=== PATIENT | female | born 1990 | race Caucasian/White ===

== ENCOUNTER 2018-10-12 12:37 | Emergency (ER) | payer MEDICAID ==
[2018-10-12] MEDS ORDERED: methylPREDNISolone SOD SUCC 125 MG/2 ML VIAL IVP ONE (13:44)
[2018-10-12] MEDS ORDERED: EPINEPHrine 1 MG/ML INJ IM ONE (13:44)
[2018-10-12] MEDS ORDERED: RANITIDINE 50 MG/2 ML VIAL IVP ONE (13:44)
--- NOTE | 2018-10-12 14:50 | EDPHY ---
General Time Seen by Provider: 10/12/18 13:42 Narrative: CHIEF COMPLAINT: Allergic reaction HISTORY OF PRESENT ILLNESS: Patient presents by EMS with reports of allergic reaction to a rabbit. She states that she was petting a rabbit, and 10 min later she began to feel her face swell, her throat itch, and her skin age. Symptoms happened abruptly and very severe. She was given IV Benadryl EN route with minimal improvement. She reports still having some difficulty swallowing. She has no chest pain or shortness of breath. She has itching throughout her body. She has no modifying factors. No previous incidence of this. No known allergies. No other associated complaints or modifying factors. REVIEW OF SYSTEMS: 10 systems were reviewed and negative with the exception of the elements mentioned in the history of present illness. PCP: [facility] [place] SPECIALISTS: None currently PAST MEDICAL HISTORY: Denies PAST SURGICAL HISTORY: Denies SOCIAL HISTORY: Lives independently with a significant other. 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 FAMILY HISTORY: Noncontributory EXAMINATION: Vitals: Triage VS reviewed General Appearance: Alert, no distress. Speaking in full sentences. Head: normocephalic, atraumatic Eyes: Pupils equal and round, no conjunctival pallor. There is periorbital edema. Eyes are well visualized without difficulty. ENT, Mouth: Mucous membranes moist. Airway is widely patent. There is no trismus. No edema of the lips or tongue. Uvula is midline. Neck: Normal inspection, supple, non-tender Respiratory: Lungs are clear to auscultation Cardiovascular: Regular rate and rhythm. No murmur Neurological: Cranial nerves 2-12 grossly intact. A&O, nonfocal, normal gait Skin: Warm and dry. Multiple tattoos and piercings. Mild urticaria to the arms. Extremities: Nontender, no pedal edema Psychiatric: Mood and affect normal DIFFERENTIAL DIAGNOSES: Including but not limited to anaphylaxis, allergic reaction MDM: 1:45 p.m. Acute allergic reaction with facial swelling but no compromise of the airway. She received IV Benadryl EN route, and I have added epinephrine, Solu-Medrol and H2 olga. We will re-evaluate shortly. She is in no acute distress. Awake and alert. 2:15 p.m. Patient re-evaluated. She is starting to improve. Airway remains patent. She is conversing in full sentences. No drooling. No trismus. No swelling of the lips or tongue. 3:00 p.m. Patient re-evaluated. She has continued to improve. Continue to monitor. 3:30 p.m. Patient re-evaluated. She is feeling significantly better. She is tolerating liquids by mouth. Her eyes are significantly improved. There is no swelling of the lips or tongue. No drooling. We discussed discharge home with short course of Benadryl, Pepcid and steroid burst. We discussed strict ED precautions for return of swelling, swelling lips or tongue, rash or difficulty breathing or swallowing. She is comfortable this plan. She is ambulatory. Discharged home stable condition. SUPERVISION: This patient was independently evaluated without direct involvement of or examination by the attending physician. CONSULTATION: None - History Smoking Status: Current every day smoker - Objective Vital Signs: Initial Vital Signs Temperature (C) 98.4 F 10/12/18 12:43 Heart Rate 78 10/12/18 12:43 Respiratory Rate 16 10/12/18 12:43 Blood Pressure 115/72 10/12/18 12:43 O2 Sat (%) 96 10/12/18 12:43 O2 Delivery Mode Room Air Allergies/Adverse Reactions: Penicillins Allergy (Verified 10/12/18 12:41) strawberry Allergy (Verified 10/12/18 12:42) Home Medications: Medication Instructions Recorded Dexamethasone [Decadron 4 MG (*)] 8 mg PO DAILY #4 tab 10/12/18 Medications Given: Discontinued Medications Epinephrine HCl (Epinephrine) 0.3 mg IM EDNOW ONE Stop: 10/12/18 13:45 Last Admin: 10/12/18 13:57 Dose: 0.3 mg Methylprednisolone Sodium Succinate (Solu-Medrol) 125 mg IVP EDNOW ONE Stop: 10/12/18 13:45 Last Admin: 10/12/18 14:00 Dose: 125 mg Ranitidine HCl (Zantac) 50 mg IVP EDNOW ONE Stop: 10/12/18 13:45 Last Admin: 10/12/18 13:54 Dose: 50 mg Departure - Departure Disposition: Home, Routine, Self-Care Clinical Impression: Acute anaphylaxis Qualifiers: Encounter type: initial encounter Qualified Code(s): T78.2XXA - Anaphylactic shock, unspecified, initial encounter Allergic reaction Qualifiers: Encounter type: initial encounter Qualified Code(s): T78.40XA - Allergy, unspecified, initial encounter Condition: Good Instructions: Anaphylaxis (ED), General Allergic Reaction (ED) Additional Instructions: 1. Decadron steroid by mouth tonight and 1 additional dose tomorrow morning. 2. Benadryl 25-50 mg every 6 hr as needed for the next 24 hr 3. Pepcid 20 mg every 12 hr for the next 24 hr as needed 4. Strict ED precautions for return of any facial swelling, swelling of the lips or tongue, difficulty breathing Referrals: Lindsay Hayes MD [[facility] Primary Care Provider] - As per Instructions Prescriptions: Dexamethasone [Decadron 4 MG (*)] 8 mg PO DAILY #4 tab
[2018-10-12 15:29] VITALS: BP 107/60
== END 2018-10-12 15:51 | disposition home or self-care (01) ==
DX: L23.81 Allergic contact dermatitis due to animal (cat) (dog) dander (principal); F17.200 Nicotine dependence, unspecified, uncomplicated
CPT/HCPCS: 96374; J0171; J2780; J2930

== ENCOUNTER 2018-11-06 21:20 | Emergency (ER) | payer MEDICAID ==
--- NOTE | 2018-11-06 21:37 | EDPHY ---
H & P Stated Complaint: flu-like symptoms x 1 week, productive cough Time Seen by Provider: 11/06/18 21:37 HPI/ROS: CHIEF COMPLAINT: Fever, cough, flu-like symptoms HISTORY OF PRESENT ILLNESS: Patient presents to the ED with a one-week history of cough and flu-like symptoms. She developed a fever today to 102 degrees. The patient complains of generalized myalgias. She did not get a flu shot. Patient denies any abdominal pain, vomiting or diarrhea. She reports her symptoms are moderate in nature. The patient denies significant past medical history. REVIEW OF SYSTEMS: A comprehensive 10 point review of systems is otherwise negative aside from elements mentioned in the history of present illness. Source: Patient - Personal History Current Tetanus/Diphtheria Vaccine: Unsure Current Tetanus Diphtheria and Acellular Pertussis (TDAP): Unsure - Medical/Surgical History Hx Asthma: No Hx Chronic Respiratory Disease: No Hx Diabetes: No Hx Cardiac Disease: No Hx Renal Disease: No Hx Cirrhosis: No Hx Alcoholism: No Hx HIV/AIDS: No Hx Splenectomy or Spleen Trauma: No Other PMH: denies - Social History Smoking Status: Current every day smoker - Physical Exam Exam: General Appearance: Alert, no distress Eyes: Pupils equal and round no pallor or injection ENT, Mouth: Mucous membranes moist Respiratory: Rhonchorous breath sounds noted at the right lung base Cardiovascular: Regular rate and rhythm Gastrointestinal: Abdomen is soft and nontender, no masses, bowel sounds normal Neurological: A&O, normal motor function, normal sensory exam, normal cranial nerves Skin: Warm and dry, no rashes Musculoskeletal: Neck is supple nontender, specifically no meningeal symptoms Extremities: symmetrical, full range of motion Psychiatric: Patient is oriented X 3, there is no agitation Constitutional: Initial Vital Signs Temperature (C) 37.9 C 11/06/18 21:22 Heart Rate 107 H 11/06/18 21:22 Respiratory Rate 20 11/06/18 21:22 Blood Pressure 115/75 11/06/18 21:22 O2 Sat (%) 95 11/06/18 21:22 O2 Delivery Mode Room Air Allergies/Adverse Reactions: Penicillins Allergy (Verified 11/06/18 21:20) strawberry Allergy (Verified 11/06/18 21:20) Home Medications: Medication Instructions Recorded NK [No Known Home Meds] 11/06/18 Medical Decision Making - Diagnostics Imaging Results: Imaging Impressions Chest X-Ray 11/06/18 21:45 Impression: Mild bronchitis. No other findings for acute cardiopulmonary abnormality. ED Course/Re-evaluation: The patient presents to the ED with a one-week history of a flu-like illness primarily with respiratory symptoms. The patient has no clinical evidence of meningitis. The patient is nontoxic and well-appearing. Patient did undergo a chest x-ray in the emergency department. Chest x-ray demonstrates no evidence of focal infiltrate. Patient likely has influenza however is not a candidate for Tamiflu given the duration of her symptoms. Patient will be discharged home with customary influenza aftercare instructions. Differential Diagnosis: Differential diagnosis considered includes asthma, bronchitis, pneumonia, influenza Departure - Departure Disposition: Home, Routine, Self-Care Clinical Impression: Acute bronchitis Condition: Good Instructions: Acute Bronchitis (ED) Additional Instructions: 1. Chest x-ray demonstrates no evidence of a pneumonia. 2. Is likely you have influenza however given the duration of your symptoms he would not benefit from any anti influenza medications currently. 3. Albuterol inhaler up to every 2-4 hours as needed for cough and shortness of breath. 4. Tessalon pearls as directed for cough. Referrals: [facility],. [Clinic] - As per Instructions
[2018-11-06 22:29] VITALS: BP 120/67
== END 2018-11-06 22:30 | disposition home or self-care (01) ==
DX: J20.9 Acute bronchitis, unspecified (principal); F17.210 Nicotine dependence, cigarettes, uncomplicated; Z88.0 Allergy status to penicillin

== ENCOUNTER 2019-01-21 12:40 | Emergency (ER) | payer MEDICAID ==
--- NOTE | 2019-01-21 12:45 | EDPHY ---
H & P Time Seen by Provider: 01/21/19 12:44 - Medical/Surgical History Hx Asthma: No Hx Chronic Respiratory Disease: No Hx Diabetes: No Hx Cardiac Disease: No Hx Renal Disease: No Hx Cirrhosis: No Hx Alcoholism: No Hx HIV/AIDS: No Hx Splenectomy or Spleen Trauma: No Other PMH: denies - Social History Smoking Status: Current every day smoker Constitutional: Initial Vital Signs Temperature (C) 36.5 C 01/21/19 12:54 Heart Rate 76 01/21/19 12:54 Respiratory Rate 22 H 01/21/19 12:54 Blood Pressure 113/72 01/21/19 12:54 O2 Sat (%) 94 01/21/19 12:54 O2 Delivery Mode Room Air Allergies/Adverse Reactions: Penicillins Allergy (Verified 11/06/18 21:20) strawberry Allergy (Verified 11/06/18 21:20) Home Medications: Medication Instructions Recorded Albuterol [Ventolin Hfa Inhaler] 2 puffs IH QID PRN #1 mdi 11/06/18 Benzonatate [Tessalon Pearles (RX)] 100 mg PO BID PRN #20 cap 11/06/18 Trazodone HCl 01/21/19 predniSONE 40 mg PO DAILY #10 tab 01/21/19 Medical Decision Making ED Course/Re-evaluation: CHIEF COMPLAINT: Allergic reaction HISTORY OF PRESENT ILLNESS: The patient is a 28 y/o female with a 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 She was unaware this sandwich contained strawberries. She denies rash, nausea, vomiting, or difficulty breathing. She is a daily smoker, but otherwise healthy. No recent illness. REVIEW OF SYSTEMS: A comprehensive 10 system review of systems is otherwise negative aside from elements mentioned in the history of present illness and medical decision making. PHYSICAL EXAM: HR, BP, O2 Sat, RR. Temp noted General Appearance: Alert, well hydrated, appropriate, and non-toxic appearing. Head: Atraumatic without scalp tenderness or obvious injury Eyes: Pupils equal, round, reactive to light and accommodation, EOMI, no trauma , no injection. Ears: Clear bilaterally, no perforation, normal landmarks Nose: Atraumatic, no rhinorrhea, clear. Throat: There is no erythema or exudates, no lesions, normal tonsils, mucus membranes moist. Uvula midline. Neck: Supple, nontender, no lymphadenopathy. Respiratory: No retractions, no distress, no wheezes, and no accessory muscle use. Lungs are clear to auscultation bilaterally. No stridor. Cardiovascular: Regular rate and rhythm, no murmurs, rubs, or gallops. Good capillary refill all extremities. Gastrointestinal: Abdomen is soft, nontender, non-distended, no masses, no rebound, no guarding, no peritoneal signs. Musculoskeletal: Normal active ROM of all extremities, atraumatic. Neurological: Alert, appropriate, and interactive. The patient has non-focal cranial nerves, motor, sensory, and cerebellar exam. Skin: No rashes, good turgor, no nodules on palpation. Past medical history: Allergy to strawberries. Past surgical history: Denies Family history: Noncontributory Social history: Smoker. Lives in [place]. Employed by [employer]. DIAGNOSTICS/PROCEDURES/CRITICAL CARE TIME: Not indicated. DIFFERENTIAL DIAGNOSIS: The differential diagnosis included but was not limited to angioedema, anaphylaxis, anaphylactoid reaction, urticarial reaction , and other infectious causes for skin rash. 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 Airway is patent on exam and breath sounds are clear. No facial swelling or rash noted. Plan for treatment with 0.3mg IM epinephrine, 50mg IV Benadryl, 40mg IV Pepcid, 125mg IV Solumedrol. Reassessed patient. She is feeling significantly improved. She will be discharged home with standard allergy care and follow up instructions. Script for prednisone provided. Return precautions discussed. She is comfortable with this plan. Departure - Departure Disposition: Home, Routine, Self-Care Clinical Impression: Allergic reaction Qualifiers: Encounter type: initial encounter Qualified Code(s): T78.40XA - Allergy, unspecified, initial encounter Condition: Good Instructions: General Allergic Reaction (ED) Additional Instructions: 1. Take prednisone as prescribed for the next few days. 2. Use Benadryl as directed on the packaging as needed for itching over the next few days. 3. 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 4. Return to the ED for any recurrent or worsening symptoms. Referrals: [facility],. [Clinic] - As per Instructions Prescriptions: predniSONE 40 mg PO DAILY #10 tab Report Scribed for: Kirk Longoria Report Scribed by: Remedios Castanon Date of Report: 01/21/19 Time of Report: 13:16
[2019-01-21] MEDS ORDERED: FAMOTIDINE 20 MG/2 ML SDV ONE (12:50)
[2019-01-21] MEDS ORDERED: methylPREDNISolone SOD SUCC 1 GM in D5W 100 ML IV ONE (13:37)
[2019-01-21] MEDS ORDERED: EPINEPHrine 1 MG/ML INJ IM ONE (13:37)
[2019-01-21] MEDS ORDERED: FAMOTIDINE 20 MG/2 ML SDV IVP ONE (13:39)
[2019-01-21 14:00] VITALS: BP 101/62
[2019-01-21] MEDS ORDERED: EPINEPHrine KIT (USE FOR EPIPEN) 1 MG/ML IM ONE (21:06)
[2019-01-21] MEDS ORDERED: methylPREDNISolone SOD SUCC 125 MG/2 ML VIAL ONE (21:06)
== END 2019-01-21 13:58 | disposition home or self-care (01) ==
DX: T78.40XA Allergy, unspecified, initial encounter (principal)
CPT/HCPCS: 96365; J0171; J1200; J2930

== ENCOUNTER 2019-01-22 09:31 | Emergency (ER) | payer MEDICAID ==
[2019-01-22] MEDS ORDERED: ONDANSETRON 4 MG/2 ML VIAL IVP PRN (10:09)
[2019-01-22] MEDS ORDERED: NS 1,000 ML IV ONE (10:09)
[2019-01-22 10:36] LABS: PLATELET COUNT 399 10^3/uL (150-400)
--- NOTE | 2019-01-22 11:50 | EDPHY ---
H & P Time Seen by Provider: 01/22/19 09:40 HPI/ROS: CHIEF COMPLAINT: Nausea vomiting and diarrhea. HISTORY OF PRESENT ILLNESS: Patient states she was seen in this emergency department yesterday for allergic reaction to strawberries. She states she had itchy face and some wheezing. She was given medications appropriate for allergic reaction and discharged with prescription for prednisone. She states since that time her allergic reaction has improved but she now has had some nausea, vomiting and a few episodes of diarrhea. Also body aches and poor sleep. She did not yet take medications today. She denies shortness of breath. She has had no fever. No significant rash. Contents of 10 point review of systems otherwise negative except for what is mentioned in HPI. General Appearance: Alert, no distress. Eyes: Pupils equal and round no pallor or injection. ENT, Mouth: Mucous membranes moist. No edema. Respiratory: There are no retractions, lungs are clear to auscultation. No wheezing. Cardiovascular: Regular rate and rhythm. Gastrointestinal: Abdomen is soft and nontender, no masses, bowel sounds normal. Neurological: Awake, alert, cranial nerves intact, no focal neurologic deficits. Skin: Warm and dry, no rashes. Musculoskeletal: Neck is supple nontender. Extremities are symmetrical, full range of motion, no edema. Psychiatric: Patient is oriented X 3, there is no agitation. Medical/surgical history: History methamphetamine use. 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 Smoking Status: Current every day smoker Constitutional: Initial Vital Signs Temperature (C) 36.9 C 01/22/19 09:35 Heart Rate 58 L 01/22/19 09:35 Respiratory Rate 16 01/22/19 09:35 Blood Pressure 113/66 01/22/19 09:35 O2 Sat (%) 99 01/22/19 09:35 O2 Delivery Mode Room Air Allergies/Adverse Reactions: Penicillins Allergy (Verified 01/22/19 09:35) strawberry Allergy (Verified 01/22/19 09:35) Home Medications: Medication Instructions Recorded Albuterol [Ventolin Hfa Inhaler] 2 puffs IH QID PRN #1 mdi 11/06/18 Benzonatate [Tessalon Pearles (RX)] 100 mg PO BID PRN #20 cap 11/06/18 EPINEPHrine [Epipen 0.3 MG] 0.3 mg IM ONCE #2 syr 01/21/19 Trazodone HCl 01/21/19 predniSONE 40 mg PO DAILY #10 tab 01/21/19 Medical Decision Making Differential Diagnosis: Differential diagnosis includes but is not limited to allergic reaction, gastroenteritis, medication reaction. After evaluation suspect her symptoms are likely related to her use of prednisone. She was prescribed 10 days and I suggested she may be able to cease this medication sooner than that, especially if it is causing uncomfortable side effects. No signs of continued allergic reaction, wheezes, angioedema. Tolerating p.o. In the emergency department. Improved on re-evaluation, stable for discharge. - Data Points Laboratory Results: Laboratory Results 01/22/19 10:20 01/22/19 10:20 Medications Given: Discontinued Medications Sodium Chloride (Ns) 1,000 mls @ 0 mls/hr IV ONCE ONE; Wide Open PRN Reason: Protocol Stop: 01/22/19 10:10 Last Admin: 01/22/19 10:20 Dose: 1,000 mls Ondansetron HCl (Zofran) 4 mg IVP Q15M PRN PRN Reason: Nausea/Vomiting, Can't Take PO Last Admin: 01/22/19 10:20 Dose: 4 mg Departure - Departure Disposition: Home, Routine, Self-Care Clinical Impression: Nausea & vomiting Condition: Fair Instructions: General Allergic Reaction (ED) Additional Instructions: You can stop the prednisone approximately 24-48 hours after your allergic symptoms have resolved. Stay well hydrated. Follow up with your primary care doctor for recheck as needed. Return to the emergency department if you develops new or concerning symptoms. Referrals: NONE *PRIMARY CARE P,. [Primary Care Provider] - As per Instructions
[2019-01-22 12:32] VITALS: BP 108/75
== END 2019-01-22 12:32 | disposition home or self-care (01) ==
DX: R11.2 Nausea with vomiting, unspecified (principal)
CPT/HCPCS: 96374; J2405

== ENCOUNTER 2019-03-01 17:18 | Emergency (ER) | payer MEDICAID ==
[2019-03-01 17:31] VITALS: BP 114/65
== END 2019-03-01 17:58 | disposition left against medical advice (07) ==
DX: Z53.21 Procedure and treatment not carried out due to patient leaving prior to being seen by health care provider (principal)

== ENCOUNTER 2019-03-08 16:25 | Emergency (ER) | payer MEDICAID ==
--- NOTE | 2019-03-08 17:00 | EDPHY ---
General Time Seen by Provider: 03/08/19 16:59 Narrative: CLINICAL IMPRESSION: Threatened miscarriage ASSESSMENT/PLAN: Patient is a 28-year-old female who presents to the emergency department with 1st trimester vaginal bleeding and intermittent lower abdominal cramping. Patient is afebrile, she is in no acute distress and not toxic-appearing. Her abdomen was soft, I was unable to elicit any tenderness to palpation on physical exam. Pelvic US reveals single live intrauterine with average age of 8 weeks 4 days and heart rate of 159. There is no evidence of ovarian torsion, ectopic , PID or acute surgical abdomen. She was noted to have a small subchorionic hemorrhage. H&H is within normal limits, she is O+ and does not require RhoGAM. Hcg quant 87,000. Urinalysis revealed 5-10 WBCs and 1+ bacteria, she is currently being treated on Keflex for bacteriuria. History and physical examination is most consistent with threatened miscarriage with small subchorionic hemorrhage. The patient had no further or recurrent bleeding in the emergency department, she had no recurrent abdominal cramping in the emergency department. On repeat examination she is well-appearing, her abdomen is soft and nontender to palpation. She is well established at [facility] with OBGYN and understands the importance of close follow -up. I would like her to be seen on Sunday for repeat examination, pelvic rest discussed at length. Conservative return precautions discussed-patient will return for recurrent or worsening pain, recurrence or worsening bleeding, fever , nausea, vomiting or for any other concerning symptom. Patient verbalizes understanding and she is in agreement with this plan. DIFFERENTIAL DX: Differential diagnosis including but not limited to and in no particular order threatened miscarriage, subchorionic hemorrhage, torsion, ectopic, UTI ED COURSE: 1758: Serena accessed, patient seen and evaluated at [facility] 2018 for complaints of vaginal bleeding 1st trimester . Patient with a reassuring examination, ultrasound confirmed positive IUP with heart tones at 136. Concern for threatened at that time, patient also found to have a beta HCG of 92,127. Urinalysis did show bacteriuria, she was reportedly treated with Keflex. Blood type confirmed to be 80 positive. 191: On repeat examination the patient is comfortable appearing, abdomen is soft with no tenderness to palpation. She reports cessation of bleeding. 1915: Case discussed with Dr. Ma, specifically discussed small subchorionic hemorrhage. Patient is hemodynamically stable and not actively bleeding. No indication for admission or OBGYN consultation at this time. Will discharge with conservative return precautions. CHIEF COMPLAINT: 1st trimester vaginal bleeding, lower abdominal cramping HPI: Patient is a 28-year-old female who is approximately 8 weeks presents to the emergency department with first-trimester vaginal bleeding and intermittent lower abdominal cramping. Patient reports approximately 2 weeks ago she experienced some vaginal spotting, was seen and evaluated at [facility] and [place] where a ultrasound confirmed live IUP, reported hCG quant of over 90,000. Reassuring workup, followup last Sunday with her OBGYN at [facility]. Patient has had intermittent spotting since 2 weeks ago however today had a sudden onset of increased vaginal bleeding and intermittent lower abdominal cramping. She reports that the bleeding has significantly subsided since the incident and does not believe that she is currently bleeding. She reports at approximately 4:30 a.m. Today she was sitting on the couch and she feels like she urinated in her pants, when she looked she noticed quite amount of blood. She also reports observing a clot that was red in color the size of a dime. 10 min later she started to experience some generalized lower abdominal cramping, it has been intermittent, she denies any cramping in the emergency department. Patient denies any fever, she had some low-grade nausea on the way over to the hospital however has had no vomiting. She denies any chest pain or shortness of breath. She denies any urinary symptoms to include dysuria, hematuria or frequency. Bowel movements have been regular. OBGYN at [facility] is Dr. Caro. She is known to be a B-positive, has not required RhoGAM in the past. Her 1st was uncomplicated, he was delivered by 2 weeks late while she was in longterm. PMH: Denies Pertinent Past Surgical History: section Family History: Not contributory Social History: Former smoker, denies any illicit drug use or alcohol REVIEW OF SYSTEMS: All other systems negative Constitutional: No fever, no chills, appetite change. Eyes: No discharge, vision change ENT: No sore throat, congestion, ear pain. Cardiovascular: No chest pain, no palpitations. Respiratory: No cough, no shortness of breath. Gastrointestinal: Lower abdominal cramping, nausea. No vomiting, diarrhea or constipation. Genitourinary: Vaginal bleeding. No hematuria, dysuria, flank pain. Musculoskeletal: No back pain, joint swelling, joint pain, myalgias. Skin: No rashes, color change. Neurological: No headache, dizziness, weakness. PHYSICAL EXAM: General Appearance: Alert, well-appearing and in no acute distress. HENT: Normocephalic, atraumatic. Bilateral external ears are normal. Bilateral tympanic membranes are normal with pearly pena reflex. Nares are clear, mucosa is pink. Oropharynx is clear, uvula is midline. There is no tonsillar enlargement or exudate. The dentition is normal. Eyes: PERRLA, no acute vision change, nystagmus, swelling, discharge, pain or photosensitivity. Conjunctiva pink, no pallor or injection. Neck: Supple, nontender, no lymphadenopathy, no midline pain, FROM, no meningismus. Respiratory: There are no retractions, lungs are clear to auscultation. Cardiac: Regular rate and rhythm, no murmurs or gallops. Gastrointestinal: Abdomen is soft, bowel sounds normal, no masses/hernia. I am unable to elicit any tenderness to palpation on physical examination. There is no rigidity, guarding or focal peritoneal findings. Neurological: Alert and oriented x 3, CN 2-12 grossly intact, normal gait no ataxia, DTR's intact, normal sensation and strength Skin: Warm, dry, no rashes, no nodules on palpation. Musculoskeletal: Extremities are symmetrical, full range of motion, no tenderness, deformity, swelling, or erythema. Psychiatric: Patient is oriented X 3, there is no agitation. MEDICAL DECISION MAKING: Patient was seen independently. Secondary supervising physician at time of evaluation was Dr. Ma, he did not evaluate this patient. Diagnosis: Threatened miscarriage. New, requires workup Summary: See Assessment and Plan for summary of ED visit Clinical lab tests: ordered / reviewed. Independent visualization of images, tracing, or specimens: Yes. Decision to obtain medical records or history from someone other than the patient: Yes, Review / Summarize previous medical records: Yes Discussed patient with another provider: Yes, Dr. Ma Patient Progress: Stable, discharged. - Diagnostics Imaging Results: Imaging Impressions Obstetrics Ultrasound 03/08/19 17:14 Impression: 1. Single living intrauterine gestation, with EGA 8 weeks and 4 days. Estimated date of delivery is October 14, 2019. Good heart rate. 2. Small subchorionic hemorrhage. 3. Normal ovaries. 4. Recommend follow up anatomy scan at 20 weeks. Findings discussed with Emergency Department Physician Zumb[employer] Instructor, BRANDY Granados, on March 08, 2019 at 1830. - History Smoking Status: Former smoker - Objective Vital Signs: Initial Vital Signs Temperature (C) 36.7 C 03/08/19 16:29 Heart Rate 61 03/08/19 16:29 Respiratory Rate 16 03/08/19 16:29 Blood Pressure 105/65 03/08/19 16:29 O2 Sat (%) 97 03/08/19 16:29 O2 Delivery Mode Room Air Allergies/Adverse Reactions: bee venom protein (honey bee) Allergy (Verified 03/08/19 16:32) Penicillins Allergy (Verified 03/08/19 16:32) strawberry Allergy (Verified 03/08/19 16:32) Home Medications: Medication Instructions Recorded Albuterol [Ventolin Hfa Inhaler] 2 puffs IH QID PRN #1 mdi 11/06/18 Benzonatate [Tessalon Pearles (RX)] 100 mg PO BID PRN #20 cap 11/06/18 EPINEPHrine [Epipen 0.3 MG] 0.3 mg IM ONCE #2 syr 01/21/19 Trazodone HCl 01/21/19 predniSONE 40 mg PO DAILY #10 tab 01/21/19 Laboratory Results: Laboratory Results 03/08/19 16:55 03/08/19 16:55 03/08/19 03/08/19 03/08/19 19:15 16:55 16:55 WBC 10.23 10^3/uL H 10^3/uL (3.80-9.50) RBC 4.64 10^6/uL 10^6/uL (4.18-5.33) Hgb 13.8 g/dL g/dL (12.6-16.3) Hct 40.1 % % (38.0-47.0) MCV 86.4 fL fL (81.5-99.8) MCH 29.7 pg pg (27.9-34.1) MCHC 34.4 g/dL g/dL (32.4-36.7) RDW 13.3 % % (11.5-15.2) Plt Count 404 10^3/uL H 10^3/uL (150-400) MPV 10.0 fL fL (8.7-11.7) Neut % (Auto) 60.4 % % (39.3-74.2) Lymph % (Auto) 28.7 % % (15.0-45.0) [place] % (Auto) 5.9 % % (4.5-13.0) Eos % (Auto) 3.9 % % (0.6-7.6) Baso % (Auto) 0.7 % % (0.3-1.7) Nucleat RBC Rel Count 0.0 % % (0.0-0.2) Absolute Neuts (auto) 6.18 10^3/uL 10^3/uL (1.70-6.50) Absolute Lymphs (auto) 2.94 10^3/uL 10^3/uL (1.00-3.00) Absolute Monos (auto) 0.60 10^3/uL 10^3/uL (0.30-0.80) Absolute Eos (auto) 0.40 10^3/uL 10^3/uL (0.03-0.40) Absolute Basos (auto) 0.07 10^3/uL 10^3/uL (0.02-0.10) Absolute Nucleated RBC 0.00 10^3/uL 10^3/uL (0-0.01) Immature Gran % 0.4 % % (0.0-1.1) Immature Gran # 0.04 10^3/uL 10^3/uL (0.00-0.10) Sodium 136 mEq/L mEq/L (135-145) Potassium 4.4 mEq/L mEq/L (3.5-5.2) Chloride 106 mEq/L mEq/L (97-110) Carbon Dioxide 21 mEq/l L mEq/l (22-31) Anion Gap 9 mEq/L mEq/L (6-14) BUN 11 mg/dL mg/dL (7-23) Creatinine 0.6 mg/dL mg/dL (0.6-1.0) Estimated GFR > 60 Glucose 88 mg/dL mg/dL (70-100) Calcium 9.5 mg/dL mg/dL (8.5-10.4) Beta HCG, Quant 50313.00 mIU/mL H mIU/mL (0.00-4.83) Urine Color YELLOW Urine Appearance HAZY Urine pH 5.0 (5.0-7.5) Ur Specific [place] 1.015 (1.002-1.030) Urine Protein NEGATIVE (NEGATIVE) Urine Ketones TRACE H (NEGATIVE) Urine Blood 3+ H (NEGATIVE) Urine Nitrate NEGATIVE (NEGATIVE) Urine Bilirubin NEGATIVE (NEGATIVE) Urine Urobilinogen NEGATIVE EU EU (0.2-1.0) Ur Leukocyte Esterase NEGATIVE (NEGATIVE) Urine RBC 1-3 /hpf /hpf (0-3) Urine WBC 5-10 /hpf H /hpf (0-3) Ur Epithelial Cells TRACE /lpf /lpf (NONE-1+) Urine Bacteria 1+ /hpf H /hpf (NONE SEEN) Urine Mucus TRACE /lpf /lpf (NONE-1+) Urine Glucose NEGATIVE (NEGATIVE) Medications Given: Discontinued Medications Sodium Chloride (Ns) 1,000 mls @ 0 mls/hr IV ONCE ONE PRN Reason: Wide Open Stop: 03/08/19 17:15 Last Admin: 03/08/19 17:23 Dose: 1,000 mls Ondansetron HCl (Zofran) 4 mg IVP Q4 PRN PRN Reason: Nausea/Vomiting, Can't Take PO Stop: 09/04/19 17:13 Last Admin: 03/08/19 17:23 Dose: 4 mg Departure - Departure Disposition: Home, Routine, Self-Care Clinical Impression: Threatened miscarriage Subchorionic bleed Qualifiers: Fetus number: single or unspecified fetus Trimester: first trimester Qualified Code(s): O41.8X10 - Other specified disorders of amniotic fluid and membranes, first trimester, not applicable or unspecified; O46.8X1 - Other antepartum hemorrhage, first trimester; O46.8X1 - Other antepartum hemorrhage, first trimester Condition: Good Instructions: Threatened Miscarriage (ED) Additional Instructions: DISCHARGE INSTRUCTIONS FROM YOUR DOCTOR Thank you for visiting our emergency department today. Please keep in mind that discharge from the emergency department does not mean that there is nothing wrong - it simply means that we have not identified an emergency condition that requires further evaluation or treatment in the hospital. It is very important that you follow up with your OBGYN at [facility], please call 1st thing Sunday morning to schedule an appointment. Continue your prescription for antibiotics as previously directed for your urinary tract infection, you were noted to have a small amount of bacteria still in your urine. Pelvic rest, do not use tampons or insert anything into her vagina. Abstain from sexual activity. Monitor the amount of bleeding that you are having, if your bleeding and soaking more than 1 pad per hour for greater than 3 hr return to the emergency department or should you experience symptoms of lightheaded, dizziness or any other concerning symptom. People present with illnesses and injuries in different ways, and it is always possible that we have missed something. You may always return for re-evaluation if symptoms worsen or if they are not improving or if you develop new/different symptoms. Again, thank you for choosing our emergency department. We hope that you feel better. Referrals: Meghan Otoole [Primary Care Provider] - 1-2 days without fail
[2019-03-08] MEDS ORDERED: NS 1,000 ML IV ONE (17:14)
[2019-03-08] MEDS ORDERED: ONDANSETRON 4 MG/2 ML VIAL IVP PRN (17:14)
[2019-03-08 17:32] LABS: PLATELET COUNT 404 10^3/uL (150-400)
[2019-03-08 19:47] VITALS: BP 97/51
--- NOTE | 2019-03-12 11:03 | ASMTCMCOM ---
CM Note CM Note Notes: CM asked to contact [facility] regarding microbiology from urinalysis on ED visit 03/08/19. Chart reviewed. This CM contacted Elmo at [facility] and confirmed that patient is seen by Dr. Bush. Patient has not been seen at the clinic since her ED visit on 03/08. This CM faxed ED report and pathology to the clinic, attention: Dr. Bush/Bry Morgan, as requested per Nov. CM availble for further needs prn Date Signed: 03/12/2019 11:01 AM Electronically Signed By:Kena Lau RN
== END 2019-03-08 19:49 | disposition home or self-care (01) ==
DX: O20.0 Threatened abortion (principal); O41.8X10 Other specified disorders of amniotic fluid and membranes, first trimester, not applicable or unspecified; O46.8X1 Other antepartum hemorrhage, first trimester; Z3A.08 8 weeks gestation of pregnancy
CPT/HCPCS: 96374; J2405

== ENCOUNTER → 2019-05-12 | Outpatient (CLI) | payer MEDICAID | LOC: FIMAGING 09:28 ==